=== PATIENT | female | born 1985 | race African-American/Black ===

== ENCOUNTER 2019-08-31 15:30 | Inpatient (IN) | payer OTHER ==
[2019-08-31] MEDS: DEXTROSE 5%-LACTATED RINGERS 1,000 ML IV SCH (16:00)
[2019-08-31 16:25] VITALS: BMI 29.2
[2019-08-31] MEDS: OXYTOCIN 30 UNITS in 0.9% NS 30 UNIT/500 ML INFUS.BAG IVPB SCH (16:30)
--- NOTE | 2019-08-31 16:30 | HP ---
Past Medical History - Admission Chief Complaint: History of Present Illness: active labor History Source: Patient Limitations to Obtaining History: No Limitations - Past Medical History MATERIALS ENGINEER: No: Alzheimer's, CVA, Dementia, Migraine, Multiple Sclerosis, Peripheral Neuropathy, Parkinson's, Seizure, Syncope, TIA, Vertigo, Other Cardiovascular: No: AFIB, Aneurysm, Aortic Insufficiency, Aortic Stenosis, CAD, CHF, Deep Vein Thrombosis, HTN, Hyperlipdemia, DC, Mitral Insufficiency, Mitral Stenosis, Murmur, Pulmonary Hypertension, Other Pulmonary: No: Asthma, Bronchitis, Cancer, COPD, O2 Dependent, Pneumonia, Previously Intubated, Pulmonary Embolus, Pulmonary Fibrosis, Sleep Apnea, Other Gastrointestinal: No: Ascites, Cancer, Constipation, Crohn's Disease, Diverticulitis, Diverticulosis, Esophageal Varices, Gastritis, GERD, GI Bleed, Hemorrhoids, Hiatal Hernia, Inflamatory Bowel Disease, Irritable Bowel Disease, Pancreatitis, Peptic Ulcer Disease, Ulcerative Colitis, Other Hepatobiliary: No: Cirrhosis, Cholelithiasis, Cholecystitis, Choledocholithiasis , Hepatitis A, Hepatitis B, Hepatitis C, Other Renal/: No: Renal Failure, Renal Inusuff, BPH, Cancer, Hematuria, Hemodialysis , Neurogenic Bladder, Renal Calculi, UTI, Other Reproductive: No: Ectopic , Endometriosis, Fibroids, PID, Polycystic Ovary Syndrome, Postmenopausal, Other ...: 3 ...Para: 1 ...Term: 1 ...: 0 ...Spon : 1 ...Induced : 0 ...Multiple Gestation: 0 ...LMP: 12/02/18 ... Weeks Gestation by Dates: 39.0 ...EDC by Dates: 09/07/19 Heme/Onc: No: Anemia, B12 Deficiency, Bleeding Disorder, Cancer, Current Chemotherapy, Current Radiation Therapy, Hemochromatosis, Hypercoaguable State, Myeloproliferative Synd, Sickle Cell Disease, Sickle Cell Trait, Thrombocytopenia, Other Infectious Disease: No: AIDS, C-Diff, Herpes Zoster, HIV, MRSA, STD's, Tuberculosis, VREF, Other Psych: No: Addictions, Anxiety, Bipolar, Depression, Panic, Psychosis, Schizophrenia, Other Musculoskeletal: No: Bursitis, Chronic low back pain, Hemiparesis, Hemiplegia, Osteoarthritis, Paraplegia, Other Rheumatology: No: Fibromyalgia, Gout, Lupus, Rheumatoid Arthritis, Sarcoidosis, Vasculitis, Other ENT: No: Allergic Rhinitis, Sinusitis, Other Endocrine: No: Summerhill's Disease, Hortensia's Disease, Diabetes Insipidus, Diabetes Mellitus, Hyperparathyroidism, Hyperthyroidism, Hypothyroidism, Osteopenia, SIADH, Other Dermatology: No: Basal Cell, Cellulitis, Eczema, Melanoma, Psoriasis, Squamous Cell, Other - Past Surgical History Past Surgical History: No: None, AAA Repair, AICD, Amputation, Appendectomy, Arthrosocopy, AV Fistula/Graft, Bariatric Surgery, Breast Biopsy, Bypass, CABG, Carotid Endarterectomy, Cataract Removal, Cholecystectomy, Colectomy, Colonoscopy, Colostomy, Craniotomy, , Cystectomy, Hernia Repair, Hysterectomy, Ileal Conduit, Ileosotomy, Joint Replacement, Kidney Transplant, Laminectomy, Liver Transplant, Mastectomy, Nephrectomy, Oopherectomy, Orchiectomy, Permanent Pacemaker, Prostatectomy, Splenectomy, Stent, Thoracotomy , TURP, Tonsillectomy, Tubal Ligation, Upper Endoscopy, Valve Replacement, Vasectomy, Vein Stripping/Ligation Hx Myomectomy: No Hx Transabdominal Cerclage: No - Advance Directives Advance Directives: Yes: Living Will - Smoking History Smoking history: Never smoked Have you smoked in the past 12 months: No - Alcohol/Substance Use Hx Alcohol Use: No History of Substance Use: reports: None - Social History Usual Living Arrangement: Yes: With Significant Other Do you think of yourself as: Straight/Heterosexual ADL: Independent History of Recent Travel: No Home Medications - Allergies Allergies/Adverse Reactions: Allergies Allergy/AdvReac Type Severity Reaction Status Date / Time No Known Allergies Allergy Verified 08/31/19 15:52 - Home Medications Home Medications: Ambulatory Orders Pnv No.95/Ferrous Fum/Folic AC [ Formula] 1 each PO DAILY 08/31/19 Family Medical History Family History: Denies Review of Systems - Review of Systems Constitutional: reports: No Symptoms Eyes: reports: No Symptoms HENT: reports: No Symptoms Neck: reports: No Symptoms Cardiovascular: reports: No Symptoms Respiratory: reports: No Symptoms Gastrointestinal: reports: No Symptoms Genitourinary: reports: No Symptoms Breasts: reports: No Symptoms Reported Musculoskeletal: reports: No Symptoms Integumentary: reports: No Symptoms Neurological: reports: No Symptoms Endocrine: reports: No Symptoms Hematology/Lymphatic: reports: No Symptoms Psychiatric: reports: No Symptoms Physical Exam - Maternity Vital Signs: Vital Signs Temperature 98.4 F 08/31/19 16:00 Pulse Rate 81 08/31/19 16:00 Respiratory Rate 18 08/31/19 16:00 Blood Pressure 113/67 08/31/19 16:00 O2 Sat by Pulse Oximetry (%) Constitutional: Yes: Well Nourished, No Distress, Calm Eyes: Yes: WNL, Conjunctiva Clear, EOM Intact HENT: Yes: WNL, Atraumatic, Normocephalic Neck: Yes: WNL, Supple, Trachea Midline Cardiovascular: Yes: WNL, Regular Rate and Rhythm Lungs: Clear to auscultation Breast(s): Yes: WNL - Abdominal Exam/OB Fundal Height: 38 Number of Fetuses: Single Presentation: Vertex Contractions: Yes Regularity: Regular Intensity: Moderate Monitor Mode: External Heart Rate Location: [facility] Category: I Accelerations: Uniform Decelerations: None - Vaginal Exam/OB Vaginal Bleediing: Light Dilatation (cm): 5 Effacement (%): 80 Amniotic Membrane Status: Bulging Meconium: Light Presentation: Vertex/Position Station: -2 - Physical Exam Musculoskeletal: Yes: WNL Extremities: Yes: WNL Edema: Yes Integumentary: Yes: WNL Deep Tendon Reflex Grade: Normal +2 ...Motor Strength: WNL Psychiatric: Yes: WNL, Alert, Oriented Hemorrhage Risk Assessment - Risk Factors Medium Risk Factors: Yes: None High Risk Factors: Yes: None Risk Score: 1 Risk Level: Medium Risk Assessment/Plan for active labor, for pitocin
[2019-08-31] MEDS ORDERED: OXYTOCIN 30 UNITS in 0.9% NS 30 UNIT/500 ML INFUS.BAG IVPB ONE (16:32)
[2019-08-31 17:02] LABS: BASO % 0.2 % (0-2.0); HEMATOCRIT 37.6 % (32.4-45.2); LYMPH % 27.8 % (8-40); MCH 31.4 pg (25.7-33.7); MCHC 34.7 g/dl (32.0-36.0); MEAN CELL VOLUME 90.6 fl (80-96); MEAN PLT VOLUME 10.9 fl (7.5-11.1); MONO % 6.6 % (3.8-10.2); NEUT % 63.4 % (42.8-82.8); PLATELET COUNT 174 K/MM3 (134-434); RBC 4.14 M/mm3 (3.60-5.2); RDW 14.2 % (11.6-15.6); WHITE BLOOD COUNT 8.6 K/mm3 (4.0-10.0)
[2019-08-31 17:08] LABS: BLOOD UREA NITROGEN 11.4 mg/dL (7-18); CALCIUM 8.4 mg/dL (8.5-10.1); CREATININE 0.5 mg/dL (0.55-1.3); POTASSIUM 3.6 mmol/L (3.5-5.1)
[2019-08-31 17:13] LABS: INR 0.99 (0.83-1.09); PROTHROMBIN TIME (PATIENT) 11.7 SEC (9.7-13.0)
[2019-08-31 17:15] LABS: ACTIVATED PTT 30.1 SECONDS (25.2-36.5)
[2019-08-31] MEDS ORDERED: FENTANYL/BUPIVACAINE/NS/PF - PCEA - 50 ML DISP.SYRIN EP ONE (17:18)
[2019-08-31] MEDS ORDERED: NALOXONE HCL 0.4 MG/ML VIAL IVPUSH PRN (17:48)
[2019-08-31] MEDS ORDERED: FENTANYL/BUPIVACAINE/NS/PF - PCEA - 50 ML DISP.SYRIN EP SCH (18:00)
[2019-08-31] MEDS ORDERED: OXYTOCIN 20 UNITS in 0.9% NS 20 UNIT/1,000 ML INFUS.BAG IV ONE (18:19)
[2019-08-31] MEDS ORDERED: LIDOCAINE HCL 1% PRESERVATIVE FREE - 30ML VIAL ONE (18:20)
[2019-08-31] MEDS: OXYTOCIN 20 UNITS in 0.9% NS 20 UNIT/1,000 ML INFUS.BAG IV SCH (19:00)
[2019-08-31] MEDS ORDERED: BISACODYL 10 MG SUPP.RECT RC PRN (19:19)
[2019-08-31] MEDS ORDERED: ACETAMINOPHEN 325 MG TABLET (FP) PO PRN (19:19)
[2019-08-31] MEDS ORDERED: BENZOCAINE 20% 57 GM BOTTLE TP PRN (19:19)
[2019-08-31] MEDS ORDERED: WITCH HAZEL 50% (TUCKS) 40 PAD/JAR PAD TP PRN (19:19)
[2019-08-31] MEDS ORDERED: BENZOCAINE 28 GM HEMORRHOIDAL OINTMENT TP PRN (19:19)
[2019-08-31] MEDS ORDERED: METHYLERGONOVINE MALEATE 0.2 MG/1 ML AMP IM PRN (19:19)
--- NOTE | 2019-08-31 19:23 | PN ---
Progress Note (short form) - Note Progress Note: 5pm 7 to 8 cm , nst reactive, comfortable w epidural, uc q 3 to 5 min,
--- NOTE | 2019-08-31 19:24 | PN ---
Progress Note (short form) - Note Progress Note: 6;10 pm, 9 1/2 cm, pushing soon, titrating down epidural to wear off, , then pushing soon , few late deccel, but recovered,
--- NOTE | 2019-08-31 19:26 | PN ---
Delivery - Delivery Vaginal Delivery: No Problems Type of Anesthesia: Epidural Episiotomy/Laceration: 1st degree EBL (cc): 250 Delivery, Single - Stages of Labor Date 1st Stage Initiatied: 08/31/19 Date 2nd Stage Initiated: 08/31/19 Date of Delivery: 08/31/19 Date Placenta Delivered: 08/31/19 Placenta: Yes: Spontaneous - Condition of Resident Engineer/Mysql Database Developer Present: No Infant Gender: Male Position: Left, OA (can foot x 1 ,) - Feeding Plan Initial Plan: Elected not to breastfeed exclusively throughout hospitalization
--- NOTE | 2019-08-31 19:30 | DS ---
Physical Exam-SPORTS PHOTOGRAPHER Vital Signs: Vital Signs Temperature 98.8 F 08/31/19 17:00 Pulse Rate 81 08/31/19 18:50 Respiratory Rate 18 08/31/19 18:45 Blood Pressure 114/74 08/31/19 18:45 O2 Sat by Pulse Oximetry (%) 100 08/31/19 18:50 Constitutional: Yes: Well Nourished, No Distress, Calm Eyes: Yes: WNL, Conjunctiva Clear, EOM Intact HENT: Yes: WNL, Atraumatic, Normocephalic Neck: Yes: WNL, Supple, Trachea Midline Cardiovascular: Yes: WNL, Regular Rate and Rhythm Respiratory: Yes: WNL, Regular, CTA Bilaterally Gastrointestinal: Yes: WNL, Normal Bowel Sounds, Soft ...Rectal Exam: Yes: WNL Renal/: Yes: WNL Pelvis: Yes: WNL External Genitalia: Yes: Normal Internal Exam Deferred: No Vaginal Exam: Yes: Normal Cervix: Yes: Normal Uterus: Yes: Normal Adnexa: Normal: Bilateral ....Post : Yes: Uterus firm, Uterus non-tender Breast(s): Yes: WNL Musculoskeletal: Yes: WNL Extremities: Yes: WNL Edema: Yes Integumentary: Yes: WNL Wound/Incision: Yes: Clean/Dry, Well Approximated Neurological: Yes: WNL, Alert, Oriented ...Motor Strength: WNL Psychiatric: Yes: WNL, Alert, Oriented Labs: CBC, BMP 08/31/19 16:15 08/31/19 16:15 Delivery - Delivery Vaginal Delivery: No Problems Type of Anesthesia: Epidural Episiotomy/Laceration: 1st degree EBL (cc): 250 Delivery, Single - Stages of Labor Date 1st Stage Initiatied: 08/31/19 Date 2nd Stage Initiated: 08/31/19 Date of Delivery: 08/31/19 Placenta: Yes: Spontaneous - Condition of Plumbing Service Technician/Automation Design Engineer Present: No Gender: Male Position: Left, OA (can foot x 1 ,) - [place] Feeding Plan Initial Plan: Elected not to breastfeed exclusively throughout hospitalization Discharge Summary Problems reviewed: Yes Reason For Visit: ADMIT LABOR Procedures: Principal: Other Procedures: none Hospital Course: uneventful Plan of Treatment: oob as much as possible Condition: Good - Instructions Diet, Activity, Other Instructions: Physical activity Resume your normal everyday activity as tolerated no heavy lifting or exercise until seen by your surgeon. You may walk unlimited mian of and climb stairs. You may resume driving the car when you feel safe and comfortable behind the wheel. No sexual activity as instructed. Wound care If you have a bandage, leave it on, and keep dry for 48-72 hours. After that time discard the outer bandage. If they are tapes on the skin under the out of bandage leave them in place. They will peel off in the next 7 to 10 days. Do Not Peel them off. You may shower the day after surgery. If there are tapes present on the skin, you may shower over them. Diet There are no dietary restrictions. Eat healthy, high-fiber foods. Drink 6 to 8 glasses of liquid each day. This will assist in keeping your bowels are regular. Pain management You may take Tylenol or acetaminophen or Ibuprofen (for example, Motrin, Advil etc.) from my pain prescription medication is ordered should be taken as prescribed for moderate to severe pain. Call MD for any of the following: call dr yang for 6 weeks appointment Severe pain not relieved by medication Fever of 101 or higher Excessive bleeding or drainage on dressing Inability to urinate Disposition: HOME - Home Medications Comprehensive Discharge Medication List: Ambulatory Orders Pnv No.95/Ferrous Fum/Folic AC [ Formula] 1 each PO DAILY 08/31/19
[2019-08-31] MEDS ORDERED: oxyCODONE HCL 5 MG TABLET ONE (20:04)
[2019-08-31] MEDS: oxyCODONE HCL 5 MG TABLET PO PRN (20:05)
[2019-09-01] MEDS: oxyCODONE HCL 5 MG TABLET PO PRN (03:11)
[2019-09-01 07:42] LABS: BASO % 0.2 % (0-2.0); EOS % 0.8 % (0-4.5); HEMATOCRIT 38.2 % (32.4-45.2); HEMOGLOBIN 13.2 GM/dL (10.7-15.3); LYMPH % 16.1 % (8-40); MCH 31.7 pg (25.7-33.7); MCHC 34.6 g/dl (32.0-36.0); MEAN CELL VOLUME 91.6 fl (80-96); MEAN PLT VOLUME 11.4 fl (7.5-11.1); MONO % 5.9 % (3.8-10.2); PLATELET COUNT 164 K/MM3 (134-434); RBC 4.17 M/mm3 (3.60-5.2); RDW 14.2 % (11.6-15.6); WHITE BLOOD COUNT 10.7 K/mm3 (4.0-10.0)
--- NOTE | 2019-09-01 08:30 | PN ---
Post Progress Note - Subjective Subjective: Pt. feels well. Recovering. No depression. Requests "Protestant" circumcision. All fully discussed. Consent obtained. Type of Delivery: Vital Signs: Vital Signs Temperature 98.5 F 08/31/19 21:58 Pulse Rate 88 08/31/19 21:58 Respiratory Rate 20 08/31/19 21:58 Blood Pressure 106/57 L 08/31/19 21:58 O2 Sat by Pulse Oximetry (%) 100 08/31/19 20:30 Breast Exam: Yes: Soft Uterus: Yes: Fundus Firm, Non-tender Abdomen/GI: Yes: Abdomen soft Lochia: Yes: Rubra Lochia, amount: Small Extremities: Yes: Calves non-tender Activity: Ambulating - Labs Labs: CBC WBC 10.7 K/mm3 (4.0-10.0) H 09/01/19 06:55 RBC 4.17 M/mm3 (3.60-5.2) 09/01/19 06:55 Hgb 13.2 GM/dL (10.7-15.3) 09/01/19 06:55 Hct 38.2 % (32.4-45.2) 09/01/19 06:55 MCV 91.6 fl (80-96) 09/01/19 06:55 MCH 31.7 pg (25.7-33.7) 09/01/19 06:55 MCHC 34.6 g/dl (32.0-36.0) 09/01/19 06:55 RDW 14.2 % (11.6-15.6) 09/01/19 06:55 Plt Count 164 K/MM3 (134-434) 09/01/19 06:55 MPV 11.4 fl (7.5-11.1) H 09/01/19 06:55 Absolute Neuts (auto) 8.2 K/mm3 (1.5-8.0) H 09/01/19 06:55 Neutrophils % 77.0 % (42.8-82.8) D 09/01/19 06:55 Lymphocytes % 16.1 % (8-40) D 09/01/19 06:55 Monocytes % 5.9 % (3.8-10.2) 09/01/19 06:55 Eosinophils % 0.8 % (0-4.5) 09/01/19 06:55 Basophils % 0.2 % (0-2.0) 09/01/19 06:55 Nucleated RBC % 0 % (0-0) 09/01/19 06:55 Assessment/Plan I: normal post . Doing well. PE WNL. P: all discussed. Circ. today w block. Instructions. Discharge tomorrow.
[2019-09-01] MEDS ORDERED: FLU VACCINE QUAD 60 MCG/0.5 ML (MDV 19-20) IM ONE (10:00)
[2019-09-01] MEDS ORDERED: FLU VACC QS2019-20(6MOS UP)/PF 60 MCG/0.5 ML SYRINGE IM ONE (10:00)
[2019-09-01] MEDS ORDERED: DIPHTH,PERTUSS(ACELL),TET 0.5 ML DISP.SYRIN IM ONE (10:00)
[2019-09-01 10:13] LABS: RPR REFLEX NONREACTIVE (NONREACTIVE)
[2019-09-01] MEDS: IBUPROFEN 600 MG TABLET (FP) PO PRN ×2 (11:03→21:00)
[2019-09-01] MEDS: DEXTROSE 5%-LACTATED RINGERS 1,000 ML IV SCH (18:52)
[2019-09-01] MEDS: OXYTOCIN 30 UNITS in 0.9% NS 30 UNIT/500 ML INFUS.BAG IVPB SCH (18:53)
[2019-09-01] MEDS: OXYTOCIN 20 UNITS in 0.9% NS 20 UNIT/1,000 ML INFUS.BAG IV SCH (19:50)
[2019-09-01] MEDS ORDERED: SENNOSIDES/DOCUSATE COMBO (SENNA PLUS) TABLET (UD) PO PRN (22:00)
[2019-09-02 09:30] VITALS: BP 97/62; PULSE 82; TEMP 97.9
== END 2019-09-02 14:55 | disposition home or self-care (01) | DRG 807 ==
LOC: JLDR 15:30 → J3W 21:08
PROVIDERS: ADMIT Obstetrics & Gynecology; ATTEND Obstetrics & Gynecology
PROC: 0HQ9XZZ Repair Perineum Skin, External Approach (ICD-10-PCS; principal; 2019-08-31)
PROC: 10E0XZZ Delivery of Products of Conception, External Approach (ICD-10-PCS; 2019-08-31)
DX: O70.0 First degree perineal laceration during delivery (principal); Z37.0 Single live birth; Z3A.39 39 weeks gestation of pregnancy
CPT/HCPCS: 36415; 59409; 80048; 85025; 85610; 85730; 86593; 86850; 86900; 86901; 87389; 90686; 90715; G0008

== ENCOUNTER 2021-08-16 22:00 | Inpatient (IN) | payer OTHER ==
[2021-08-16] MEDS ORDERED: AMPICILLIN SODIUM 2 GM VIAL ONE (22:42)
[2021-08-16] MEDS ORDERED: OXYTOCIN 20 UNITS in 0.9% NS 20 UNIT/1,000 ML INFUS.BAG IV ONE (22:42)
[2021-08-16] MEDS ORDERED: DEXTROSE 5%-LACTATED RINGERS 1,000 ML IV SCH (22:45)
[2021-08-16] MEDS ORDERED: AMPICILLIN - 2 GM in SODIUM CHLORIDE 100 ML IVPB ONE (22:46)
[2021-08-16 23:05] LABS: BASO % 0.4 % (0-2.0); EOS % 0.9 % (0-4.5); HEMATOCRIT 34.5 % (32.4-45.2); HEMOGLOBIN 11.7 GM/dL (10.7-15.3); LYMPH % 34.4 % (8-40); MCH 28.8 pg (25.7-33.7); MEAN CELL VOLUME 84.6 fl (80-96); MEAN PLT VOLUME 9.4 fl (7.5-11.1); MONO % 6.9 % (3.8-10.2); NEUT % 57.4 % (42.8-82.8); PLATELET COUNT 185 10^3/uL (134-434); RBC 4.08 M/mm3 (3.60-5.2); RDW 14.9 % (11.6-15.6); WHITE BLOOD COUNT 9.1 K/mm3 (4.0-10.0)
[2021-08-16] MEDS ORDERED: LIDOCAINE HCL 1% PRESERVATIVE FREE - 30ML VIAL ONE (23:07)
[2021-08-16 23:23] LABS: CHLORIDE 108 mmol/L (98-107); SODIUM 137 mmol/L (136-145)
[2021-08-16 23:24] LABS: CALCIUM 8.7 mg/dL (8.5-10.1)
[2021-08-16 23:26] LABS: ANION GAP 8 MMOL/L (8-16); CO2 21 mmol/L (21-32); GLUCOSE,RANDOM 136 mg/dL (74-106)
[2021-08-16 23:29] LABS: CREATININE 0.5 mg/dL (0.55-1.3)
[2021-08-16] MEDS ORDERED: oxyCODONE HCL 5 MG TABLET ONE (23:30)
[2021-08-16] MEDS ORDERED: WITCH HAZEL 50% (TUCKS) 40 PAD/JAR PAD TP PRN (23:30)
[2021-08-16] MEDS ORDERED: BENZOCAINE 28 GM HEMORRHOIDAL OINTMENT TP PRN (23:30)
[2021-08-16] MEDS ORDERED: BISACODYL 10 MG SUPP.RECT RC PRN (23:30)
[2021-08-16] MEDS ORDERED: BENZOCAINE 20% 57 GM BOTTLE TP PRN (23:30)
[2021-08-16] MEDS ORDERED: oxyCODONE HCL 5 MG TABLET PO PRN (23:30)
[2021-08-16] MEDS ORDERED: ACETAMINOPHEN 325 MG TABLET (FP) PO PRN (23:30)
[2021-08-16] MEDS ORDERED: METHYLERGONOVINE MALEATE 0.2 MG/1 ML AMP IM PRN (23:30)
[2021-08-16] MEDS ORDERED: OXYTOCIN 20 UNITS in 0.9% NS 20 UNIT/1,000 ML INFUS.BAG IV SCH (23:30)
[2021-08-16 23:38] LABS: ACTIVATED PTT 28.2 SECONDS (25.2-36.5); INR 1.06 (0.83-1.09); PROTHROMBIN TIME (PATIENT) 12.2 SEC (9.7-13.0)
[2021-08-16 23:50] LABS: BLOOD UREA NITROGEN 2.3 mg/dL (7-18)
[2021-08-16 23:53] VITALS: BMI 30.6
[2021-08-17] MEDS ORDERED: AMPICILLIN - 1 GM in SODIUM CHLORIDE 100 ML IVPB SCH (02:46)
[2021-08-17] MEDS: IBUPROFEN 600 MG TABLET (FP) PO PRN ×2 (05:36→20:27)
[2021-08-17 08:44] LABS: BASO % 0.3 % (0-2.0); EOS % 0.4 % (0-4.5); HEMATOCRIT 33.3 % (32.4-45.2); HEMOGLOBIN 11.2 GM/dL (10.7-15.3); LYMPH % 18.7 % (8-40); MCH 28.8 pg (25.7-33.7); MCHC 33.6 g/dl (32.0-36.0); MEAN CELL VOLUME 85.6 fl (80-96); MEAN PLT VOLUME 10.1 fl (7.5-11.1); MONO % 6.3 % (3.8-10.2); NEUT % 74.3 % (42.8-82.8); PLATELET COUNT 187 10^3/uL (134-434); RBC 3.89 M/mm3 (3.60-5.2); WHITE BLOOD COUNT 12.4 K/mm3 (4.0-10.0)
[2021-08-17 08:49] LABS: SODIUM 140 mmol/L (136-145)
[2021-08-17 08:50] LABS: CHLORIDE 112 mmol/L (98-107)
[2021-08-17 08:51] LABS: CALCIUM 8.3 mg/dL (8.5-10.1)
[2021-08-17 08:52] LABS: ANION GAP 7 MMOL/L (8-16); CO2 21 mmol/L (21-32); GLUCOSE,RANDOM 117 mg/dL (74-106)
[2021-08-17 08:55] LABS: CREATININE 0.5 mg/dL (0.55-1.3)
[2021-08-17 09:08] LABS: BLOOD UREA NITROGEN 1.2 mg/dL (7-18)
[2021-08-17] MEDS: PRENATAL VITAMINS W/ FOLIC ACID TABLET (FP) PO SCH (09:53)
[2021-08-17 10:18] LABS: HIV INTERPRETATION NEGATIVE (NEGATIVE)
[2021-08-17] MEDS ORDERED: SENNOSIDES/DOCUSATE COMBO (SENNA PLUS) TABLET (UD) PO PRN (22:00)
[2021-08-18] MEDS: PRENATAL VITAMINS W/ FOLIC ACID TABLET (FP) PO SCH (09:22)
[2021-08-18 10:23] VITALS: BP 101/64; PULSE 81; TEMP 97.9
== END 2021-08-18 14:05 | disposition home or self-care (01) | DRG 560 ==
LOC: JDEL 22:00 → JLDR 22:35 → J3W 08-17 01:27
PROVIDERS: ADMIT Obstetrics & Gynecology; ATTEND Obstetrics & Gynecology
PROC: 10E0XZZ Delivery of Products of Conception, External Approach (ICD-10-PCS; principal; 2021-08-16)
PROC: 0W8NXZZ Division of Female Perineum, External Approach (ICD-10-PCS; 2021-08-16)
DX: O80 Encounter for full-term uncomplicated delivery (principal); Z3A.38 38 weeks gestation of pregnancy; Z37.0 Single live birth
CPT/HCPCS: 36415; 59409; 80048; 85025; 85610; 85730; 86780; 86850; 86900; 86901; 87389; C9803; U0003; U0005